=== PATIENT | female | born 1980 | race Caucasian/White ===

== ENCOUNTER 2021-09-11 11:22 | Outpatient (CLI) | payer OTHER, SELFPAY | END 2021-09-11 11:23 | disposition home or self-care (01) | LOC: FRMREF 11:23 | PROVIDERS: PCP Physician Assistant Medical; Visit Provider Physician Assistant Medical | DX: O20.9 Hemorrhage in early pregnancy, unspecified (principal) | CPT/HCPCS: 84702 ==

== ENCOUNTER 2022-10-07 10:52 | Outpatient (CLI) | payer OTHER, SELFPAY ==
--- OUTSIDE RECORDS SUMMARY | 2022-10-07 10:55 | XMS_ITS | Continuity of Care Document ---
Author Name Unknown Organization [facility] Address [address] [place] [address] Phone Care Team Providers Care Window Shade Ring Coverer Name Role Phone Cory Burch DO Unavailable Unavailable Allergies, Adverse Reactions, Alerts Substance Reaction Status Criticality penicillin G benzathine Active No I nformation amoxicillin Active No Information Medications Medication Instructions Dosage Effective Dates (start - stop) Status Comments elderberry fruit 460 mg-elderberry flower 115 mg capsule - Active Vitamin C 1,000 mg tablet take 1 by Oral route every day 1 - Active PROBIOTIC (unknown strength) take 1 by Oral route every day Not Available - Active Vitamin D3 125 mcg (5,000 unit) tablet take 1 by Oral route every day 1 - Active ZINC (unknown strength) daily Not Available - Active Procedures Procedure Date Office/Outpatient Visit, Est Office/Outpatient Visit, New Routine Venipuncture Specimen Handling Rbc Sed Rate, Nonautomated Assay Of Serum Albumin Assay Of Ck (Cpk) Assay Of Creatinine Assay Alkaline Phosphatase Transferase (Ast) (Sgot) Assay Of Blood/Uric Acid CReactive Protein Antinuclear Antibodies Lyme Disease Antibody Rheumatoid Factor, IGM Rheumatoid Factor, IGG, IGA Complete Cbc WAuto Diff Wbc Advance Directives Directive Yes / No Effective Date File Name No Information Encounters Encounter Description Practice Location Reason(s) For Visit Diagnoses Date Provider Providers Copied on Encounter Office/Outpa tient Visit, Est [facility] , [address], [place], [address], [place] tel:[phone] Telehealth Musculoskele lenin pain (chief complaint)Ab normal Lab Study (chief complaint)Ba ck pain (chief complaint) Fibromyalgia Abnormal immunologica l finding in serum, unspecifiedL ow back pain 1 Marcin Ray. [facility] [address], [place], [address], [place]. tel:[phone] Referring Provider: Cory Montilla, [facility] [address], [place], [address]. tel:[phone] Office/Outpa tient Visit, New [facility] , [address], [place], [address], [place] tel:[phone] [facility] , Joint Pain (chief complaint)Mu sculoskeleta l pain (chief complaint)Ab normal Lab Study (chief complaint) Pain in unspecified jointMyalgia , unspecified siteAbnormal immunologica l finding in serum, unspecifiedO ther fatigue 1 Marcin Ray. [facility] [address], [place], [address], [place]. tel:[phone] Referring Provider: Cory Montilla, [facility] [address], [place], [address]. tel:[phone] Family History Family Member Type Diagnosis Age At Onset Father Problem Cardiovascular disease Maternal uncle Problem malignant neoplasm of lung Mother Problem transverse myelitis Payers Payer name Insurance type Covered libertarian ID Authorricharda yo(s) [facility] [id number] Social History Type Description Quantity Date Captured Comments Alcohol Use Details Unknown Caffeine Use Details Unknown Tobacco Use Status Current non-smoker Smoking Status Never smoker Non-Smoking Tobacco Use Details : No Details Available : No Details Available Sex Female Chief Complaint And Reason For Visit From encounter dated '04/12/2020 13:37'. Musculoskeletal pain (chief complaint) Abnormal Lab Study (chief complaint) Back pain (chief complaint) Reason For Referral Reason For Referral No Information History Of Present Illness Encounter Date Complaint History Of Prese nt Illness Musculoskeletal pain Abnormal Lab Study Back pain Joint Pain Musculoskeletal pain Abnormal Lab Study Functional Status Date Functional Assessmen t No Information Instructions Date Instruction Additional Infor mation No Information Assessments Type Assessment Date assessment Fibromyalgia assessment Abnormal immunological finding i n serum, unspecified assessment Low back pain Patient Care Teams Name Effective Dates (start - stop) Status Members No Information
== END 2022-10-07 10:53 | disposition home or self-care (01) ==
PROVIDERS: PCP Physician Assistant Medical; Visit Provider Obstetrics & Gynecology
DX: O20.9 Hemorrhage in early pregnancy, unspecified (principal)
CPT/HCPCS: 84702; 85461; 86850

== ENCOUNTER 2022-10-09 07:17 | Outpatient (CLI) | payer OTHER, SELFPAY ==
--- NOTE | 2022-10-09 07:15 | CRLHL7_ITS ---
For Patients: As a result of the Century Cures Act, medical imaging exams and procedure reports are released immediately into your electronic medical record. You may view this report before your referring provider. If you have questions, please contact your health care provider. INDICATION: bleeding in early COMPARISON: None. TECHNIQUE: Real-time tovar-scale imaging of the pelvis was performed. FINDINGS: There is no intrauterine or ectopic . Corpus luteal cyst right ovary measuring 1.4 cm. The left ovary normal. No pelvic free fluid. No uterine fibroid. Endometrium measures 6.6 millimeters. IMPRESSION: No intrauterine or ectopic . Dictated by Vijay Martin MD @ 10/09/2022 8:12:49 AM (Electronically Signed)
== END 2022-10-09 07:18 | disposition home or self-care (01) ==
LOC: US 07:18
PROVIDERS: Visit Provider Obstetrics & Gynecology
DX: O20.9 Hemorrhage in early pregnancy, unspecified (principal); O03.9 Complete or unspecified spontaneous abortion without complication
CPT/HCPCS: 76817; 84702

== ENCOUNTER 2022-10-16 08:59 | Outpatient (CLI) | payer OTHER, SELFPAY | END 2022-10-16 09:00 | disposition home or self-care (01) | LOC: NFLDREF 10-17 12:32 | PROVIDERS: Visit Provider Registered Nurse | DX: O03.9 Complete or unspecified spontaneous abortion without complication (principal) | CPT/HCPCS: 84702 ==

== ENCOUNTER 2023-08-21 02:29 | Emergency (ER) | payer OTHER, SELFPAY ==
[2023-08-21] VITALS (9 sets, daily range): BP systolic 124–159; BP diastolic 71–90; PULSE 71–91; RESP 16; TEMP 37; O2SAT 95–100; BMI 36.1
--- NOTE | 2023-08-21 02:53 | CRLHL7_ITS ---
For Patients: As a result of the Century Cures Act, medical imaging exams and procedure reports are released immediately into your electronic medical record. You may view this report before your referring provider. If you have questions, please contact your health care provider. INDICATION: CHEST PAIN, RAPID BREATHING TECHNIQUE: Chest 2 views. COMPARISON: None. FINDINGS: Cardiovascular and mediastinum: Heart size and vasculature are normal in caliber and appearance. Lungs and pleural spaces: Lungs are clear. No sign of infiltrate. No sign of pleural effusion. No pneumothorax. Bones and soft tissues: No significant findings. IMPRESSION: No evidence of acute cardiopulmonary process. Dictated by Hayes Rivera MD @ 08/21/2023 5:09:47 AM (Electronically Signed)
--- OUTSIDE RECORDS SUMMARY | 2023-08-21 03:00 | XMS_ITS | Encounter Summary ---
Author Organization [facility] Address [address] [address] Care Team Providers Care Fisher Diving Name Role Phone Needs Pcp, Assignment Primary Care Provider [phone] Encounter Details Date Type Department Care Team (Latest Contact Info) Description 10/28/2000 [facility] Ector Figueroa MD [address] [place] [address] Social History Tobacco Use Types Packs/Day Years Used Date Smoking Tobacco: Never Assessed Sex and Gender Information Value Date Recorded Sex Assigned at Not on file Gender Identity Not on file Sexual Orientation Not on file documented as of this encounter Procedure Notes * Ector Figueroa - 10/28/2000 12:00 AM CDTDATE OF SURGERY: STAFF SURGEON: Ector Figueroa MD PREOPERATIVE DIAGNOSIS: Urinary frequency. POSTOPERATIVE DIAGNOSIS: Urinary frequency. NAME OF OPERATION: [place]-distention of the bladder. ANESTHESIA: General. DESCRIPTION OF PROCEDURE: After the patient was prepped and draped in the dorsal lithotomy position, using a Storz cystoscope, the urethra and bladder were inspected. There were no exophytic lesions, foreign bodies, or calculi. The bladder was distended at 50 cm of water pressure and diffuse glomerulations and Hunner ulcer formations were noted. IMPRESSION: This patient does have interstitial cystitis. The patient tolerated the procedure well and was taken to the recovery room in satisfactory condition. hai Dictated: 10/28/2000 12:50:38 Lesvia Figueroa MD Transcribed: 10/29/2000 05:13:00 Doc #: [id number] cc: [facility], Primary Provider DO NOT SIGN UNLESS PRESENT FOR PROCEDURE I attest that I was present for and participated in the joseph portions of this procedure(s) in compliance with the Health Care Financing Administration Teaching Physician Guidelines. Signed Date Regions Staff Physician 1 Page 1 Patient Name: NOREEN KEE Visit Date: 10/28/2000 OUTPATIENT OPERATIVE REPORT [facility] RECORD [address] [address] Page 1 Patient: [facility]ORE[facility]EE [id number] Date of : 1980 Visit Date: 10/28/2000 OUTPATIENT OPERATIVE REPORT documented in this encounter Plan of Treatment Not on file documented as of this encounter Visit Diagnoses Not on filedocumented in this encounter Care Teams Fisher Diving Relationship Specialty Start Date End Date Needs Pcp, [place] [address] PCP - General 01/04/22 documented as of this encounter
--- OUTSIDE RECORDS SUMMARY | 2023-08-21 03:00 | XMS_ITS | Clinical Summary ---
Author Organization [facility] Address [address] [place] [address] Care Team Providers Care Underground Roof Bolter Name Role Phone Alla Espinosa MD Primary Care Provider [phone] Allergies Active Allergy Reactions Criticality Noted Date Comments Amoxicillin 04/12/2013 Azithromycin Rash Low 12/10/2015 Rash on face, arms and legs. Penicillins Hives 11/18/2012 Medications Medication Sig Dispensed Refills Start Date End Date Status albuterol (PROAIR HFA/PROVENTIL HFA/VENTOLIN HFA) 108 (90 Base) MCG/ACT Inhaler Inhale 2 puffs into the lungs every 6 hours as needed for shortness of breath / dyspnea or wheezing 1 Inhaler 08/28/2017 Active ondansetron (ZOFRAN) 8 MG tabletIndications:Hemanth sea and vomiting, intractability of vomiting not specified, unspecified vomiting type Take 1 tablet (8 mg) by mouth every 8 hours as needed for nausea 15 tablet 3 09/12/2017 Active Additional Information Patient not taking.Reported on 11/28/2017 Active Problems Problem Noted Date Diagnosed Date PCOS (polycystic ovarian syndrome) 05/30/2015 Cervical high risk HPV (human papillomavirus) te st positive 05/25/2015 Overview: 05/25/15: Pap - NIL, + HR HPV type 16 & other HR HPV. Plan colp 06/01/15 Pt advised. 06/06/15 [place]: WNL. Plan: pap and HPV due in 1 year, by 06/05/16 06/25/16 NIL, +HPV 16 (Care Everywhere) 02/24/17 [place]- Inflammation and mild squamous atypia. Plan 1 yr pap repeat. (Care Everywhere) 07/16/17 ASCUS, Neg HPV. Plan colp. 09/05/17: [place] Bx ADALI I. Plan pap . 07/28/18 Patient is lost to pap tracking follow-up. CARDIOVASCULAR SCREENING; LDL GOAL LESS THAN 160 04/04/2015 Dysmenorrhea 04/04/2015 Hair loss 04/04/2015 Right-sided thoracic back pain 04/04/2015 Weight gain 04/04/2015 Acute intractable tension-type headache 04/04/19 16 Insomnia, unspecified insomnia 04/04/2015 Immunizations Name Administration Dates Next Due DT (PEDS <7y) 06/04/1985 Hepatitis A (ADULT 19+) 05/30/2010 Hepatitis B, Adult 12/04/2010,05/30/2010, 011 Historical DTP/aP 06/06/1982,01/04/1981,07/28/18 81 Influenza (IIV3) PF 12/04/2010 Influenza Vaccine >6 months,quad, PF 11/28/2017 MMR 04/27/1982 OPV, trivalent, live 06/04/1985,01/04/1981,07/28 Pneumo Conj 13-V (2010&after) 03/06/2016 Rhogam 01/02/2018 TDAP (Adacel,Boostrix) 12/04/2010 TDAP Vaccine (Adacel) 01/02/2018 Family History Medical History Relation Comments Depression Father GERD Father heartburn Heart Disease Father Mental Illness Father Breast Cancer Maternal Aunt Diabetes Maternal Grandfather Cancer Maternal Uncle Arthritis Mother Blood Disease Mother not sure what it is called Chronic Infections Mother bladder inf Neuromuscular Disease Mother transverse myelitis Depression Paternal Uncle Relation Status Comments Father Alive Maternal Aunt Maternal Grandfather Maternal Grandmother Maternal Uncle Mother Alive Paternal Grandfather Paternal Grandmother Alive Paternal Uncle Social History Tobacco Use Types Packs/Day Years Used Date Smoking Tobacco: Never Smokeless Tobacco: Never Tobacco Cessation:Counseling Given: No Alcohol Use Standard Drinks/Week Comments No 0 (1 standard drink = 0.6 oz pur e alcohol) PHQ-2 Answer Date Recorded PHQ-2 Score 0 03/17/2018 Adolescent Education Answer Date Record ed Getting School Help Needed Not on file 12/15 Sex and Gender Information Value Date Recorded Sex Assigned at Not on file Gender Identity Not on file Sexual Orientation Not on file Last Filed Vital Signs Vital Sign Reading Time Taken Comments Blood Pressure 122/72 01/02/2018 10:22 AM CDT Pulse 76 10/03/2017 1:42 PM CDT Temperature 37.2 ??C (99 ??F) 08/13/2017 3:25 PM CDT Respiratory Rate 16 03/06/2016 5:41 PM NITRATOR OPERATOR Oxygen Saturation 99% 08/13/2017 3:25 PM CDT Inhaled Oxygen Concentration - - Weight 94.8 kg (209 lb) 01/02/2018 10:22 AM CDT Height 167.6 cm (5' 6) 09/05/2017 10:20 AM CDT Body Mass Index 33.73 09/05/2017 10:20 AM CDT Plan of Treatment Not on file Care Teams Underground Roof Bolter Relationship Specialty Start Date End Date Alla Espinosa MD [address] [place] [address] PCP - General escalator constructor 11/28/17
--- OUTSIDE RECORDS SUMMARY | 2023-08-21 03:00 | XMS_ITS | Clinical Summary ---
Author Organization [facility] Address [address] [place] [address] Care Team Providers Care Regulatory Affairs Associate Name Role Phone Needs Pcp, Assignment Primary Care Provider [phone] Source Comments You are receiving this document as you are listed as the primary care provider,follow-up provider, or the patient has been referred to you for consultation.This is in compliance with the Medicare and[facility] EHR Incentive Program,which states Providers who transition their patient to another setting of careor provider of care or refers their patient to another provider of care shouldprovide summary care record for each transition of care or referral. [employer] [facility] [facility]formerly [employer] Allergies Active Allergy Reactions Criticality Noted Date Comments Amoxicillin Unknown 09/21/2013 Amoxicillin Rash 09/09/2018 Penicillins Rash 09/09/2018 Medications Medication Sig Dispensed Refills Start Date End Date Status ALBUterol sulfate hfa 108 (90 BASE) MCG/ACT inhaler 2 puffs every 4 hours while awake for the next three days and then as needed. Do not use more than 12 puffs in 24 hours. 18 g 0 12/09/2013 Active Vitamins/Minerals Take 1 Tab by mouth. Active sertraline (ZOLOFT) 50 MG tablet Take 1 Tablet by mouth daily. 90 Tablet 3 09/09/2018 Active cyclobenzaprine (FLEXERIL) 10 MG tablet Take 1 Tablet by mouth three times a day as needed for Muscle Spasms. 30 Tablet 09/09/2018 Active Misc. Devices (BREAST PUMP) 1 Each 09/09/2018 Active Lactobacillus 09/09/2018 Active Acetaminophen (TYLENOL ARTHRITIS PAIN OR) Take 1,300 mg by mouth daily. Active ibuprofen (MOTRIN) 600 MG tablet Take 600 mg by mouth as needed for Pain. Active Vit-Fe Fumarate-FA ( RX 1 OR) Active oxybutynin (DITROPAN) 5 MG tabletIndications:Tony jean-baptiste frequency Take 1 Tablet (5 mg) by mouth two times a day. 180 Tablet 3 01/18/2022 Active Active Problems Problem Noted Date Diagnosed Date Depression 10/27/2018 Cervical cancer screening 07/02/2016 Overview: From visit on 06/25/16: History of abnormal pap tests? Yes; Age: 35- positive HPV?? in 2016?? 2017 NILM; Positive for High Risk HPV type 16 36 y.o. Colpo: negative biopsies Plan: repeat pap in 1 year Immunizations Name Administration Dates Next Due DT Ped 06/04/1985 DTP 06/06/1982,01/04/1981,1980 MMR 04/27/1982 OPV, Trivalent (Orimune or tOPV) 06/04/1985,12/09,1980 Tdap 12/04/2010 Family History Medical History Relation Name Comments Depression Father Hyperlipidemia Father Hypertension Father Genetic Disorder Mother Osteoporosis Mother Diabetes, Type II Maternal Grandfather Relation Name Status Comments Father Alive Mother Alive Maternal Grandfather (Age 40's) complication w/ diabetes Maternal Grandmother (Age 64) Co mplication after surgery Paternal Grandfather (Age 84) Paternal Grandmother Alive Social History Tobacco Use Types Packs/Day Years Used Date Smoking Tobacco: Never Smokeless Tobacco: Never Alcohol Use Standard Drinks/Week Comments Never 0 (1 standard drink = 0.6 oz pur e alcohol) Sex and Gender Information Value Date Recorded Sex Assigned at Not on file Gender Identity Not on file Sexual Orientation Not on file Last Filed Vital Signs Vital Sign Reading Time Taken Comments Blood Pressure 121/74 10/27/2018 8:42 AM CDT Pulse 72 10/27/2018 8:42 AM CDT Temperature 36.7 ??C (98.1 ??F) 12/14/2013 5:28 PM CD T Respiratory Rate 15 06/25/2016 9:12 AM CDT Oxygen Saturation 100% 12/14/2013 5:28 PM CDT Inhaled Oxygen Concentration - - Weight 105.2 kg (232 lb) 10/27/2018 8:42 AM CDT Height 167.6 cm (5' 6) 10/27/2018 8:42 AM CDT Body Mass Index 37.45 10/27/2018 8:42 AM CDT Plan of Treatment Health Maintenance Due Date Last Done Comments Hep C Screening (Preventive Services) 1980 HIV Screening (Preventive Services) 1996 HepB (1) 05/28/1999 Cervical Cancer Screening 06/25/20172016, 05/25/2015 (Completed), 12/04/2010 Adult Preventive Visit 06/25/2018 06/25/2016 COVID-19 Vaccine ( season) 2022 Influenza (Season Ended) 2023 11/28/2017, 11/09 DTaP/Tdap/Td (7 - Tdap) 01/03/2028 01/03/20, 12/04/2010, 06/04/1985, Additional history exists Zoster/Shingles (1 of 2) 2030 IPV (Polio) Completed 06/04/1985, 12/09, 1980 HepA Aged Out 05/30/2010 No longer eligi ble based on patient's age to complete this topic Pneumococcal Aged Out 03/06/2016 No longer eligi ble based on patient's age to complete this topic HPV Vaccine Aged Out No longer eligi ble based on patient's age to complete this topic Hib Aged Out No longer eligi ble based on patient's age to complete this topic MCV4 Aged Out No longer eligi ble based on patient's age to complete this topic Procedures Procedure Name Priority Date/Time Associated Diagnosis Comments PAP TEST, DIAGNOSTIC Routine 06/25/2016 10:14 AM CDT Screening for cervical cancer from Last 3 Months or Most Recently Relevant to Health Maintenance Results * Pap Test, Diagnostic (06/25/2016 10:14 AM CDT) Cytology (NOTE) Barrel Inspector Tight Cytology Report Patient Name: NOREEN KEE Taken: 06/25/2016 Received: 06/26/2016 Reported: 07/04/2016 Physician(s): TIKI GRIGSBY ?Source of Specimen Pap Test, Diagnostic Cervical/Endocervi josefina: ?Specimen Adequacy ?Satisfactory for evaluation. ??Endocervical component absent. ? Final Cytologic Interpretation/Res ult NEGATIVE FOR INTRAEPITHELIAL LESION OR MALIGNANCY (NILM) ?? *Electronically Signed Out By KUMAR Meng (ASCP)* KUMAR Meng (ASCP) ? Pap Smear History Date of Last Menstrual Period: No LMP recorded ?? Microscopic Description Microscopic examination is performed. [facility] Department of Pathology [address] [place] [address] ??[id number] [facility] 06/25/2016 10:1 4 AM CDT 06/26/2016 5:33 PM CDT Tiik Grigsby PA-C LAB_1 [facility] [phone] from Last 3 Months or Most Recently Relevant to Health Maintenance Care Teams Regulatory Affairs Associate Relationship Specialty Start Date End Date Needs PcpSam [facility] [place], [place] [address] PCP - General 01/04/22
--- OUTSIDE RECORDS SUMMARY | 2023-08-21 03:01 | XMS_ITS | Encounter Summary ---
Author Organization [facility] Address [address] [place] [address] Care Team Providers Care Slunk Skinner Name Role Phone Leeanne Fleming APRN, CNP Primary Care Provid er Leeanne Fleming APRN, CNP Primary Care Provid er No Ref-Primary, Physician Primary Care Provider Alla Espinosa MD Primary Care Provider [phone] Leeanne Fleming APRN SENIOR GRANTS OFFICER Unavailable + [phone] Leeanne Fleming APRN SENIOR GRANTS OFFICER Unavailable + [phone] Encounter Details Date Type Department Care Team (Late st Contact Info) Description 02/21/2016 [facility] [address] [id number] Ashley Yao Social History Tobacco Use Types Packs/Day Years Used Date Smoking Tobacco: Never Smokeless Tobacco: Never Alcohol Use Standard Drinks/Week Comments Yes 0 (1 standard drink = 0.6 oz pur e alcohol) occ Sex and Gender Information Value Date Recorded Sex Assigned at Not on file Gender Identity Not on file Sexual Orientation Not on file documented as of this encounter Plan of Treatment Not on file documented as of this encounter Visit Diagnoses Not on filedocumented in this encounter Care Teams Slunk Skinner Relationship Specialty Start Date End Date Leeanne Fleming APRN CNP [address] [place] [address] PCP - General Nurse Practitioner 03/06/16 07/15/17 Leeanne Fleming APRN SENIOR GRANTS OFFICER [address] [place] [address] PCP - General Nurse Practitioner 07/16/17 07/24/17 No Ref-Primary, Physician PCP - General 07/25/17 11/27/17 Alla Espinosa MD [address] [facility] [place] [address] PCP - General textile designs sales representative 11/28/17 Leeanne Fleming APRN SENIOR GRANTS OFFICER [address] [place] [address] PCP - Assigned PCP 03/09/15 05/12/18 Leeanne Fleming APRN SENIOR GRANTS OFFICER [address] [place] [address] Assigned PCP 03/09/15 03/06/19 documented as of this encounter
--- OUTSIDE RECORDS SUMMARY | 2023-08-21 03:01 | XMS_ITS | Encounter Summary ---
Author Organization [facility] Address [address] [place] [address] Care Team Providers Care Lay Ups Assembler Name Role Phone Leeanne Fleming APRN, CNP Primary Care Provid er Leeanne Fleming APRN, CNP Primary Care Provid er No Ref-Primary, Physician Primary Care Provider Alla Espinosa MD Primary Care Provider [phone] Leeanne Fleming APRN VIOLIN RESTORER Unavailable +- [phone] Leeanne Fleming APRN VIOLIN RESTORER Unavailable +- [phone] Reason for Visit * Reason Onset Date Comments Patient Request 02/22/2016 Looking to see i f you can schedule her for an appt Encounter Details Date Type Department Care Team ([facility] Contact Info) Description 02/22/[address] [place] [address] Leeanne Olson MD [address] [place] [address] Patient Request (Looking to see if you can schedule her for an appt) Social History Tobacco Use Types Packs/Day Years Used Date Smoking Tobacco: Never Smokeless Tobacco: Never Alcohol Use Standard Drinks/Week Comments Yes 0 (1 standard drink = 0.6 oz pur e alcohol) occ Sex and Gender Information Value Date Recorded Sex Assigned at Not on file Gender Identity Not on file Sexual Orientation Not on file documented as of this encounter Miscellaneous Notes * Telephone Encounter - Celine Martin - 02/22/2016 12:27 PM CST Left message to call clinic. Celine Martin CTION PREVENTION COORDINATOR * Telephone Encounter - Leeanne Olson MD - 02/22/2016 12:20 PM INFECTION PREVENTION COORDINATOR I could see her on Mar 14 in a 15 min slot but I don't think that is much better than Mar 15. I don'thave any room to squeeze her in before that but she is welcome to see another bobbin handler if they have earlier availability. Thanks, Leeanne Olson MD CTION PREVENTION COORDINATOR * Telephone Encounter - Rina Wills - 02/22/2016 9:47 AM CST Pt called in stating she had been messaging with you via [employer] about her irregular period and wastold to call to set up an appointment. Your schedule doesn't open up until Mar 15 and she was wondering if you could find a time to squeeze her in any earlier. Pt can be reached @ [phone] [facility] CTION PREVENTION COORDINATOR documented in this encounter Plan of Treatment Not on file documented as of this encounter Visit Diagnoses Not on filedocumented in this encounter Care Teams Lay Ups Assembler Relationship Specialty Start Date End Date Leeanne Fleming APRN VIOLIN RESTORER [address] [place] [address] PCP - General Nurse Practitioner 03/06/16 07/15/17 Leeanne Fleming APRN VIOLIN RESTORER [address] [place] [address] PCP - General Nurse Practitioner 07/16/17 07/24/17 No Ref-Primary, Physician PCP - General 07/25/17 11/27/17 Alla Espinosa MD [address] [place] [address] PCP - General bucket wash operator 11/28/17 Leeanne Fleming APRN VIOLIN RESTORER [address] [place] [address] PCP - Assigned PCP 03/09/15 05/12/18 Leeanne Fleming APRN VIOLIN RESTORER [address] [place] [address] Assigned PCP 03/09/15 03/06/19 documented as of this encounter
--- OUTSIDE RECORDS SUMMARY | 2023-08-21 03:01 | XMS_ITS | Encounter Summary ---
Author Organization [facility] Address [address] [place] [address] Care Team Providers Care Manager Mortgage Name Role Phone No Ref-Primary, Physician Primary Care Provider Alla Espinosa MD Primary Care Provider [phone] Leeanne Fleming MODEL MAKER SCALE SENIOR STACK ENGINEER Unavailable +- [phone] Leeanne Fleming APRN SENIOR STACK ENGINEER Unavailable +- [phone] Reason for Referral * - Closed Specialty Diagnoses / Procedures Referred By Nima holguin Referred To Contact Diagnoses related condition, antepartum Alla Espinosa MD [address] [place] [address] Referral ID Status Reason Start Date Expiration Date Visits Re quested Visits Authorized [id number] Closed 10/03/2017 10/03/2018 1 1 Comments AMA Encounter Details Date Type Department Care Team (Late st Contact Info) Description 10/03/2017 [facility] [address] [phone] Alla Espinosa MD [address] [facility] [place] [address] related condition, antepartum (Primary Dx) Social History Tobacco Use Types Packs/Day Years Used Date Smoking Tobacco: Never Smokeless Tobacco: Never Alcohol Use Standard Drinks/Week Comments No 0 (1 standard drink = 0.6 oz pur e alcohol) Comments Yes Sex and Gender Information Value Date Recorded Sex Assigned at Not on file Gender Identity Not on file Sexual Orientation Not on file documented as of this encounter Plan of Treatment Scheduled Referrals Name Type Priority Associated Diagnoses Orde r Schedule MFM Genetic Counseling Referral Routine related condition, antepartum 1 Occurrences starting 10/03/2017 until 10/03/2018 documented as of this encounter Visit Diagnoses Diagnosis related condition, antepartum- Primary documented in this encounter Care Teams Manager Mortgage Relationship Specialty Start Date End Date No Ref-Primary, Physician PCP - General 07/25/17 11/27/17 Alla Espinosa MD [address] [place] [address] PCP - General educational guidance counselor 11/28/17 Leeanne Fleming APRN SENIOR STACK ENGINEER [address] [place] [address] PCP - Assigned PCP 03/09/15 05/12/18 Leeanne Fleming APRN SENIOR STACK ENGINEER [address] [place] [address] Assigned PCP 03/09/15 03/06/19 documented as of this encounter
--- OUTSIDE RECORDS SUMMARY | 2023-08-21 03:01 | XMS_ITS | Encounter Summary ---
Author Organization [facility] Address [address] [place] [address]. [place] [address] Care Team Providers Care Rn Licensed Practical Name Role Phone Leeanne Fleming APRN, CNP Primary Care Provid er Leeanne Fleming APRN, CNP Primary Care Provid er No Ref-Primary, Physician Primary Care Provider Alla Espinosa MD Primary Care Provider [phone] Leeanne Fleming APRN BATCH ROOM TECHNICIAN Unavailable + [phone] Leeanne Fleming APRN BATCH ROOM TECHNICIAN Unavailable [phone]- [phone] Encounter Details Date Type Department Care Team (Late st Contact Info) Description 06/13/2015 [facility] [place] Medical Advice [address] [place] [address] Leeanne Olson MD [address] [place] [address] [address] [place] [address] Social History Tobacco Use Types Packs/Day Years [...] on filedocumented in this encounter Care Teams Rn Licensed Practical Relationship Specialty Start Date End Date Leeanne Fleming APRN BATCH ROOM TECHNICIAN [address] [place] [address] PCP - General Nurse Practitioner 03/06/16 07/15/17 Leeanne Fleming APRN BATCH ROOM TECHNICIAN [address] [place] [address] PCP - General Nurse Practitioner 07/16/17 07/24/17 No Ref-Primary, Physician PCP - General 07/25/17 11/27/17 Alla Espinosa MD [address] [place] [address] PCP - General medical records director 11/28/17 Leeanne Fleming APRN BATCH ROOM TECHNICIAN [address] [place] [address] PCP - Assigned PCP 03/09/15 05/12/18 Leeanne Fleming APRN BATCH ROOM TECHNICIAN [address] [place] [address] Assigned PCP 03/09/15 03/06/19 documented as of this encounter
--- OUTSIDE RECORDS SUMMARY | 2023-08-21 03:01 | XMS_ITS | Encounter Summary ---
Author Organization [facility] Address [address] [place] [address] Care Team Providers Care Ham Boner Name Role Phone Leeanne Fleming APRN, CNP Primary Care Provid er Leeanne Fleming APRN, CNP Primary Care Provid er No Ref-Primary, Physician Primary Care Provider Alla Espinosa MD Primary Care Provider [phone] Leeanne Fleming APRN HOOP MACHINE OPERATOR Unavailable [phone] Leeanne Fleming APRN HOOP MACHINE OPERATOR Unavailable [phone] Encounter Details Date Type Department Care Team (Late st Contact Info) Description 06/28/2015 [facility] Advice [address] [phone] Leeanne Fleming APRN HOOP MACHINE OPERATOR [address] [place] [id number] Social History Tobacco Use Types Packs/Day Years [...] on filedocumented in this encounter Care Teams Ham Boner Relationship Specialty Start Date End Date Leeanne Fleming APRN HOOP MACHINE OPERATOR [address] [place] [address] PCP - General Nurse Practitioner 03/06/16 07/15/17 Leeanne Fleming APRN HOOP MACHINE OPERATOR [address] [place] [address] PCP - General Nurse Practitioner 07/16/17 07/24/17 No Ref-Primary, Physician PCP - General 07/25/17 11/27/17 Alla Espinosa MD [address] [place] [address] PCP - General airline station agent 11/28/17 Leeanne Fleming APRN HOOP MACHINE OPERATOR [address] [place] [address] PCP - Assigned PCP 03/09/15 05/12/18 Leeanne Fleming APRN HOOP MACHINE OPERATOR [address] [place] [address] Assigned PCP 03/09/15 03/06/19 documented as of this encounter
--- OUTSIDE RECORDS SUMMARY | 2023-08-21 03:01 | XMS_ITS | Encounter Summary ---
Author Organization [facility] Address [address] [place] [address]. [place] [address] Care Team Providers Care Carpenter Helper Name Role Phone Leeanne Fleming APRN, CNP Primary Care Provid er Leeanne Fleming APRN, CNP Primary Care Provid er No Ref-Primary, Physician Primary Care Provider Alla Espinosa MD Primary Care Provider [phone] Leeanne Fleming APRN MOLD FILLER Unavailable + [phone] Leeanne Fleming APRN MOLD FILLER Unavailable +- [phone] Encounter Details Date Type Department Care Team (Late st Contact Info) Description 11/03/2015 [facility] [place] [address] [place] [address] Leeanne Olson MD [address] [place] [address] [address] [place] [address] Social History Tobacco Use Types [...] on filedocumented in this encounter Care Teams Carpenter Helper Relationship Specialty Start Date End Date Leeanne Fleming APRN MOLD FILLER [address] [place] [address] PCP - General Nurse Practitioner 03/06/16 07/15/17 Leeanne Fleming APRN MOLD FILLER [address] [place] [address] PCP - General Nurse Practitioner 07/16/17 07/24/17 No Ref-Primary, Physician PCP - General 07/25/17 11/27/17 Alla Espinosa MD [address] [place] [address] PCP - General operational assistant 11/28/17 Leeanne Fleming APRN MOLD FILLER [address] [place] [address] PCP - Assigned PCP 03/09/15 05/12/18 Leeanne Fleming APRN MOLD FILLER [address] [place] [address] Assigned PCP 03/09/15 03/06/19 documented as of this encounter
--- OUTSIDE RECORDS SUMMARY | 2023-08-21 03:01 | XMS_ITS | Encounter Summary ---
Author Organization [facility] Address [address] [place] [address] Care Team Providers Care Helper Teacher Name Role Phone Alla Espinosa MD Primary Care Provider [phone] Leeanne Fleming HIM CLERK PERSONAL COUNSELOR Unavailable [phone]- [phone] Leeanne Fleming APRN PERSONAL COUNSELOR Unavailable + [phone] Encounter Details Date Type Department Care Team (Late st Contact Info) Description 12/23/2017 [facility] [place] [facility] [address] [address] Alla Espinosa MD [address] [place] [address] Social History Tobacco Use Types Packs/Day Years [...] on filedocumented in this encounter Care Teams Helper Teacher Relationship Specialty Start Date End Date Alla Espinosa MD [address] [place] [address] PCP - General dial equipment engineer 11/28/17 Leeanne Fleming APRN PERSONAL COUNSELOR [address] [place] [address] PCP - Assigned PCP 03/09/15 05/12/18 Leeanne Fleming APRN PERSONAL COUNSELOR [address] [place] [address] Assigned PCP 03/09/15 03/06/19 documented as of this encounter
--- OUTSIDE RECORDS SUMMARY | 2023-08-21 03:01 | XMS_ITS | Encounter Summary ---
Author Organization [facility] Address [address] [place] [address]. [place] [address] Care Team Providers Care Armhole Presser Name Role Phone No Ref-Primary, Physician Primary Care Provider Alla Espinosa MD Primary Care Provider [phone] Leeanne Fleming BLEND PLANT OPERATOR SOURCING ENGINEER Unavailable [phone] Leeanne Fleming APRN SOURCING ENGINEER Unavailable [phone] Reason for Visit * Reason Onset Date Comments Pelvic Pain 08/11/2017 Encounter Details Date Type Department Care Team (Late st Contact Info) Description 08/11/2017 [facility]ice [address] [phone] Alla Espinosa MD [facility] [place] [address] Pelvic Pain Social History Tobacco Use Types Packs/Day Years [...] encounter Miscellaneous Notes * Telephone Encounter - Alla Espinosa MD - 08/19/2017 12:14 PM CDT I think her appointment tomorrow is fine as long as she isn't having intolerable pain or bleeding. Thanks. Alla Espinosa MD * Telephone Encounter - Maya Markham RN - 08/19/2017 11:[address] Espinosa, please review the my chart messages and advise if you would like to see pt today. She does have an appt tomorrow with you. Cayetano Markham RN * Telephone Encounter - Abigail Vera RN - 08/13/2017 11:55 AM CDT Left message on answering machine for patient to check my chart message and to call back. Abigail Vera RN * Telephone Encounter - Alla Espinosa MD - 08/12/2017 3:00 PM CDT 1. She can come in for UA, UC today or tomorrow and to get a bladder diary to fill out prior to herappointment. Then ok to move her appointment up if there is a 15 min spot sooner. 2. Her US was consistent with a possible ruptured ovarian cyst, which can cause symptoms like thoseshe has been having. However, this should get better on its own over time, but can take several weeks. 3. If severe pain unrelenting despite use of over the counter meds, needs to be seen in the ED. Alla Espinosa MD * Telephone Encounter - Ashley Morris RN - 08/11/2017 5:04 PM CDT Please see mychart message and advise. Ashley Morris RN documented in this encounter Plan of Treatment Not on file documented as of this encounter Visit Diagnoses Not on filedocumented in this encounter Care Teams Armhole Presser Relationship Specialty Start Date End Date No Ref-Primary, Physician PCP - General 07/25/17 11/27/17 Alla Espinosa MD [address] [place] [address] PCP - General element burner 11/28/17 Leeanne Fleming APRN SOURCING ENGINEER [address] [place] [address] PCP - Assigned PCP 03/09/15 05/12/18 Leeanne Fleming APRN SOURCING ENGINEER [address] [place] [address] Assigned PCP 03/09/15 03/06/19 documented as of this encounter
--- OUTSIDE RECORDS SUMMARY | 2023-08-21 03:01 | XMS_ITS | Encounter Summary ---
Author Organization [facility] Address [address] [place] [address] Care Team Providers Care Welder/Installer Name Role Phone Alla Espinosa MD Primary Care Provider [phone] Leeanne Fleming APRN INDUCTION COORDINATION ENGINEER Unavailable [phone] Leeanne Fleming APRN INDUCTION COORDINATION ENGINEER Unavailable [phone]- [phone] Reason for Visit * Reason Onset Date Comments Care 01/17/2018 med question Encounter Details Date Type Department Care Team (Late st Contact Info) Description 01/17/2018 [facility] Advice [address] [address] Alla Espinosa MD [address] [place] [address] Care (med question) Social History Tobacco Use Types Packs/Day Years [...] on filedocumented in this encounter Care Teams Welder/Installer Relationship Specialty Start Date End Date Alla Espinosa MD [address] [place] [address] PCP - General circulation supervisor 11/28/17 Leeanne Fleming APRN INDUCTION COORDINATION ENGINEER [address] [place] [address] PCP - Assigned PCP 03/09/15 05/12/18 Leeanne Fleming APRN INDUCTION COORDINATION ENGINEER [address] [place] [address] Assigned PCP 03/09/15 03/06/19 documented as of this encounter
--- OUTSIDE RECORDS SUMMARY | 2023-08-21 03:01 | XMS_ITS | Encounter Summary ---
Author Organization [facility] Address [address] [place] [address] Care Team Providers Care Relations Mgr Name Role Phone Leeanne Fleming APRN, CNP Primary Care Provid er Leeanne Fleming APRN, CNP Primary Care Provid er No Ref-Primary, Physician Primary Care Provider Alla Espinosa MD Primary Care Provider [phone] Leeanne Fleming APRN BILLBOARD ERECTOR HELPER Unavailable [phone] Leeanne Fleming APRN BILLBOARD ERECTOR HELPER Unavailable [phone] Encounter Details Date Type Department Care Team (Late st Contact Info) Description 08/10/2015 [facility] [place] Medical Advice [address] [phone] Leeanne Fleming APRN BILLBOARD ERECTOR HELPER [address] [place] [id number] Social History Tobacco Use Types Packs/Day Years [...] encounter Miscellaneous Notes * Telephone Encounter - Ashley Almanzar MD - 08/11/2015 7:57 AM CDT Yes, sounds like PCOS. Should probably come in for appt to discuss diagnosis and next possible options like metformin, ocp, etc (sounds like she will need appt per Leeanne's note) Thanks Ashley Almanzar MD documented in this encounter Plan of Treatment Not on file documented as of this encounter Visit Diagnoses Not on filedocumented in this encounter Care Teams Relations Mgr Relationship Specialty Start Date End Date Leeanne Fleming APRN BILLBOARD ERECTOR HELPER [address] [place] [address] PCP - General Nurse Practitioner 03/06/16 07/15/17 Leeanne Fleming APRN BILLBOARD ERECTOR HELPER [address] [place] [address] PCP - General Nurse Practitioner 07/16/17 07/24/17 No Ref-Primary, Physician PCP - General 07/25/17 11/27/17 Alla Espinosa MD [address] [place] [address] PCP - General horse rider 11/28/17 Leeanne Fleming APRN BILLBOARD ERECTOR HELPER [address] [place] [address] PCP - Assigned PCP 03/09/15 05/12/18 Leeanne Fleming APRN BILLBOARD ERECTOR HELPER [address] [place] [address] Assigned PCP 03/09/15 03/06/19 documented as of this encounter
[2023-08-21] MEDS: KETOROLAC 15 MG/ML inj IVP (03:21)
[2023-08-21] MEDS: LORazepam 2 MG/ML inj 1 MG IVP (03:21)
[2023-08-21 03:22] LABS: Basophils Percent Auto 0.2 % (0.0-3.0); Eosinophils Percent Auto 2.8 % (0.0-7.0); Hematocrit 41.7 % (33.0-51.0); Immature Granulocytes Pct Auto 0.1 %; Lymphocytes Percent Auto 25.5 % (20-44); Mean Corpuscular HGB Conc 34 gm/dL (32-36); Mean Corpuscular Hemoglobin 29 pg (26-34); Mean Corpuscular Volume 85 fL (80-100); Monocytes Percent Auto 8.5 % (0.0-11.0); Neutrophils Percent Auto 62.9 % (42.0-72.0); Platelet Count* 329 K/uL (140-440); RDW Coefficient of Variation % 13.1 % (11.5-15.5); White Blood Count* 13.25 K/uL (4.50-11.00)
[2023-08-21] MEDS: 0.9 % SODIUM CHLORIDE 1000 ml 1,000 ML IV (03:22)
[2023-08-21 03:23] LABS: Slide Review Reflex No
--- NOTE | 2023-08-21 03:24 | ED.GENADULT ---
HPI - General Adult General Date Seen: 08/21/23 Chief complaint: Chest Pain Stated complaint: chest pain, rapid breathing Time Seen by Provider: 08/21/23 02:30 Source: patient, RN notes reviewed and old records reviewed Mode of arrival: ambulatory Limitations: no limitations History of Present Illness HPI narrative: Patient is a 43-year-old woman who comes in with right-sided upper chest pain. She says this started a few hours ago when she was driving. It hurts to take a breath, does not otherwise feel short of breath. No fevers or cough. She tried some Tylenol which did not help. Pain radiates into the shoulder and has been associated with some nausea but no vomiting. No change with position. Denies abdominal pain. Denies history of similar pain. No lower extremity swelling or pain, no history of PE DVT. She seems quite anxious, she says she does have a history of anxiety but has never had symptoms like this. Medical history reviewed. Does not smoke or drink. Related Data Home Medications ?Medication ?Instructions ?Recorded ?Confirmed acetaminophen 500 mg tablet 1,000 mg PO Q6H PRN 10/09/22 07/06/23 (Tylenol Extra Strength) docosahexaenoic acid 200 mg mg PO 10/09/22 07/06/23 capsule ( DHA) albuterol sulfate 90 mcg/actuation 2 puff inhalation Q6H PRN 01/10/23 07/06/23 aerosol inhaler Previous Rx's ?Medication ?Instructions ?Recorded budesonide-formoterol HFA 160 2 inh inhalation BID #1 packet 01/10/23 mcg-4.5 mcg/actuation aerosol inhaler azithromycin 250 mg tablet See Rx Instructions PO .COMPLEX #6 03/26/23 tabs Allergies Allergy/AdvReac Type Severity Reaction Status Date / Time amoxicillin AdvReac Intermediate Rash Verified 07/06/23 10:15 Penicillin Allergy Intermediate Rash Uncoded 07/06/23 10:15 Review of Systems Status of ROS: Reports: 10 or more systems reviewed and unremarkable except as noted in History and below PFSH PFS Medical History Urticaria ?L50.9 - Urticaria, unspecified (ICD-10) Surgical History H/O breast augmentation ?Z98.82 - Breast implant status (ICD-10) Family History Father Coronary artery disease Mother Rheumatoid arthritis Social History Narrative: Has 1 child Non-smoker Non-prescribed substance use: denies use Exam Narrative: Exam Narrative: Vital signs as noted above. In general, an alert, nontoxic woman. She has her hand over her right upper chest near her clavicle. Head: Normocephalic, atraumatic. Eyes: Pupils are equal reactive. Extraocular movements are full. Conjunctivae are normal. ENT: Mucous membranes are moist. Throat is normal. Neck: Supple without lymphadenopathy. Heart: Regular rate and rhythm. No murmur or rub. Lungs: Clear bilaterally. No increased work of breathing, crackles or wheezes. Abdomen: Soft and nontender. No organomegaly. Extremities: Well perfused. No edema. No calf tenderness. Pulses intact. Neurologic: Patient is alert and oriented to person and place. Speech is fluent. Face is symmetric. Moves all extremities equally. Affect: Anxious. Skin: Warm and dry. Well perfused. Const: Vital Signs, click to edit/add: Vital Signs - 24 hr 08/21/23 02:35 08/21/23 02:40 08/21/23 02:45 Temperature 98.6 F Pulse Rate 88 83 Pulse Rate [Pulse Oximeter] 91 Respiratory Rate 16 Blood Pressure Blood Pressure [Ri ght Upper Arm] 159/90 H Pulse Oximetry 100 99 99 Oxygen Delivery Me thod Room Air 08/21/23 02:53 08/21/23 03:00 08/21/23 03:15 Temperature Pulse Rate 81 75 Pulse Rate [Pulse Oximeter] Respiratory Rate Blood Pressure Blood Pressure [Ri ght Upper Arm] Pulse Oximetry 100 99 99 Oxygen Delivery Me thod 08/21/23 03:30 08/21/23 03:45 08/21/23 04:00 Temperature Pulse Rate 71 73 72 Pulse Rate [Pulse Oximeter] Respiratory Rate 16 Blood Pressure 124/71 Blood Pressure [Ri ght Upper Arm] Pulse Oximetry 95 95 96 Oxygen Delivery Me thod Documenting provider has reviewed patient's vital signs: yes Course Course ED Course: Patient is examined vital signs are reassuring. Diagnostic considerations include muscular pain, pneumothorax, pulmonary embolism, pneumonia, acute coronary syndrome, biliary colic among others. EKG done on arrival shows a sinus rhythm, ventricular rate of 87. No acute ST segment changes, unremarkable T-waves. No EKG suggestion of pericarditis. Point of care troponin 0.02. Low risk, perc negative. Workup here is fairly unrevealing, white blood cell count is mildly elevated at 13, hemoglobin normal, diff is unremarkable. D-dimer normal at 0.26, no further evaluation needed for pulmonary embolism. Metabolic panel is normal, LFTs are normal, CRP is less than 0.5. BNP is 37. Initial point of care troponin was 0.02 a 2 hour troponin was 0. She had some improvement with Toradol and Ativan. She requests something for anxiety for home use. I told her that I can give her a few Ativan for short-term use but that she would need to see her primary doctor to discuss longer-term management of anxiety. She says she really does not want to be on a medicine every day, but I have discussed with her that if she is needing Ativan for management of her symptoms she would be best served by discussing other management strategies with her primary doctor. With regard to her chest pain, no evidence of dangerous cause at this time. Reviewed that symptoms may be chest wall, would recommend a trial of nonsteroidals, primary care follow-up next week for recheck. Vital Signs Vital signs: Initial Vital Signs Temperature 98.6 F 08/21/23 02:35 Temperature Source Temporal Artery Scan 08/21/23 02:35 Pulse Rate 91 08/21/23 02:35 Respiratory Rate 16 08/21/23 02:35 Blood Pressure 159/90 H 08/21/23 02:35 Blood Pressure Mean 113 H 08/21/23 02:35 Blood Pressure Position Supine 08/21/23 02:35 Pulse Oximetry 100 08/21/23 02:35 Oxygen Delivery Method Room Air 08/21/23 02:35 Vital Signs Temperature 98.6 F 08/21/23 02:35 Pulse Rate 91 08/21/23 02:35 Respiratory Rate 16 08/21/23 02:35 Blood Pressure 159/90 H 08/21/23 02:35 Pulse Oximetry 100 08/21/23 02:35 Oxygen Delivery Method Room Air 08/21/23 02:35 Temperature 98.6 F 08/21/23 02:35 Pulse Rate 72 08/21/23 04:00 Respiratory Rate 16 08/21/23 04:00 Blood Pressure 124/71 08/21/23 04:00 Pulse Oximetry 96 08/21/23 04:00 Oxygen Delivery Method Room Air 08/21/23 02:35 Medications Administered Medications: Generic Name Dose Route Start Last Admin Trade Name Freq PRN Reason Stop Dose Admin Sodium Chloride 1,000 mls @ 1,000 mls/hr 08/21/23 03:00 08/21/23 04:11 0.9 % Sodium Chloride 1000 Ml IV 08/21/23 03:59 Infused .Q1H DAVY Infusion Ketorolac Tromethamine 15 mg 08/21/23 02:56 08/21/23 03:21 Ketorolac 15 Mg/Ml Inj IVP 08/21/23 02:57 15 mg ONCE ONE Administration Lorazepam 1 mg 08/21/23 02:56 08/21/23 03:21 Lorazepam 2 Mg/Ml Inj IVP 08/21/23 02:57 1 mg ONCE ONE Administration Medical Decision Making Lab Data Labs: Lab Results 08/21/23 08/21/23 08/21/23 Range/Units 02:57 03:14 04:52 WBC 13.25 H (4.50-11.00) K/uL RBC 4.90 (4.00-5.20) m/uL Hgb 14.0 (12.0-16.0) gm/dL Hct 41.7 (33.0-51.0) % MCV 85 (80-100) fL MCH 29 (26-34) pg MCHC 34 (32-36) gm/dL RDW Coeff of Myrna 13.1 (11.5-15.5) % Plt Count 329 (140-440) K/uL Neut % (Auto) 62.9 (42.0-72.0) % Lymph % (Auto) 25.5 (20-44) % [place] % (Auto) 8.5 (0.0-11.0) % Eos % (Auto) 2.8 (0.0-7.0) % Baso % (Auto) 0.2 (0.0-3.0) % Neut # (Auto) 8.30 H (1.7-7.0) K/uL Lymph # (Auto) 3.40 H (0.90-2.90) K/uL [place] # (Auto) 1.10 H (0.00-0.90) K/UL Eos # (Auto) 0.40 (0.00-0.50) K/uL Baso # (Auto) 0.00 (0.00-0.30) K/uL Abs Immat Gran (auto) 0.00 (0.00-0.30) K/uL Imm/Tot Granulo (auto) 0.1 % D-Dimer Quant (PE/DVT) 0.26 (0.00-0.50) ug/ml Sodium 136 (135-149) mmol/L Potassium 3.8 (3.6-5.1) mmol/L Chloride 107 (96-114) mmol/L Carbon Dioxide 24 (20-32) mmol/L Anion Gap 5 L (7-15) mEq/L BUN 15 (5-24) mg/dL Creatinine 0.6 (0.5-1.5) mg/dL Estimated Creat Clear 108.79 Estimated GFR 114 ml/min Glucose 111 (60-115) mg/dL Calcium 9.3 (8.4-10.6) mg/dL Total Bilirubin 0.6 (0.1-1.5) mg/dL Direct Bilirubin 0.3 (0.0-0.5) mg/dL AST 21 (12-35) U/L ALT 31 (4-35) U/L Alkaline Phosphatase 56 (40-150) U/L C-Reactive Protein < 0.5 L (0.5-1.0) mg/dL NT-Pro-B Natriuret Pep 37 pg/mL Total Protein 7.1 (6.0-8.3) g/dL Albumin 4.5 (3.3-5.0) g/dL POC Troponin I 0.02 0.00 L (0.01-0.04) ng/ml Discharge Plan Discharge Clinical Impression: Atypical chest pain, Anxiety Patient Disposition: Home, Self-Care Condition: Improved Instructions: Chest Wall Pain (ED) Additional Instructions: Ibuprofen 400 mg 3 times daily, +/-1000 mg of Tylenol. Ice may be helpful as well. You can use Ativan as needed for anxiety symptoms in the short term, this is not a long-term solution for anxiety. Please follow-up with your primary doctor in the next week for recheck, and to discuss long-term management for anxiety as we will not be able to provide continued medications out of the emergency department. Return any time for severe uncontrolled pain, new symptoms such as fever, cough, vomiting. Prescriptions: No Action DHA 200 mg capsule PO acetaminophen [Tylenol Extra Strength] 500 mg tablet 1,000 mg PO Q6H PRN albuterol sulfate 90 mcg/actuation HFA aerosol inhaler 2 puff inhalation Q6H PRN budesonide-formoterol 160-4.5 mcg/actuation HFA aerosol inhaler 2 inh inhalation BID Qty: 1 0RF azithromycin 250 mg tablet See Rx Instructions PO .COMPLEX Qty: 6 0RF Rx Instructions: For 250 mg dose pack: take 500 mg today (day 1), then 250 mg for 4 days (days 2-5) PO Follow Up/Referrals: Fawad Escalante PA-C [Primary Care Provider] - Stand Alone Forms: [employer] Info Instructions
[2023-08-21 03:32] LABS: Troponin, Point-of-Care* 0.02 ng/ml (0.01-0.04)
[2023-08-21 03:35] LABS: Chloride* 107 mmol/L (96-114); Potassium* 3.8 mmol/L (3.6-5.1); Sodium* 136 mmol/L (135-149)
[2023-08-21 03:36] LABS: Albumin* 4.5 g/dL (3.3-5.0)
[2023-08-21 03:37] LABS: Creatinine* 0.6 mg/dL (0.5-1.5); Est. Creatinine Clearance* 108.79; Estimated Glomerular Filt Rate 114 ml/min
[2023-08-21 03:38] LABS: Anion Gap 5 mEq/L (7-15); Blood Urea Nitrogen* 15 mg/dL (5-24); Calcium* 9.3 mg/dL (8.4-10.6); Carbon Dioxide* 24 mmol/L (20-32); Glucose* 111 mg/dL (60-115)
[2023-08-21 03:39] LABS: Alanine Aminotransferase* 31 U/L (4-35); Alkaline Phosphatase* 56 U/L (40-150); Aspartate Amino Transferase* 21 U/L (12-35); Bilirubin Direct* 0.3 mg/dL (0.0-0.5); Bilirubin Total* 0.6 mg/dL (0.1-1.5); Total Protein* 7.1 g/dL (6.0-8.3)
[2023-08-21 03:41] LABS: C Reactive Protein* < 0.5 mg/dL (0.5-1.0)
[2023-08-21 03:42] LABS: D Dimer Quantitative* 0.26 ug/ml (0.00-0.50)
[2023-08-21 03:48] LABS: NT Pro B Type NatriureticPept* 37 pg/mL
== END 2023-08-21 05:33 | disposition home or self-care (01) ==
PROVIDERS: Emergency Provider Emergency Medicine; PCP Physician Assistant Medical
DX: R07.9 Chest pain, unspecified (principal); F41.9 Anxiety disorder, unspecified
CPT/HCPCS: 36415; 71046; 80048; 80076; 83880; 84484; 85025; 85379; 86140; 93005; 94761; 96374; 96375; 99284; J1885; J2060; J7030

== ENCOUNTER 2023-09-08 10:03 | Outpatient (CLI) | payer OTHER, SELFPAY ==
--- NOTE | 2023-09-08 10:00 | CRLHL7_ITS ---
For Patients: As a result of the Century Cures Act, medical imaging exams and procedure reports are released immediately into your electronic medical record. You may view this report before your referring provider. If you have questions, please contact your health care provider. Indication: PLEURODYNIA. LUQ PAIN. POSSIBLE HERNIA. PT DID VALSALVA DURING EXAM Technique: CT Abdomen/Pelvis WITHOUT Please note that all CT scans at this facility use dose modulation, iterative reconstruction, and/or weight-based dosing when appropriate to reduce radiation dose to as low as reasonably achievable. Comparison: ABDOMINAL ULTRASOUND 07/25/2021 Findings: Visualized breast implants are intact. Lung bases are clear. Noncontrast enhanced liver is within normal limits. The gallbladder is incompletely distended. No biliary obstruction. Normal spleen. Pancreas unremarkable. Normal adrenal glands. Kidneys normal. No renal stone. No hiatal hernia. No bowel obstruction, free air, free fluid or adenopathy. Bladder incompletely distended. Normal appendix. Slight outpouching of the left inguinal fat noted measuring 2.0 cm. No uterine fibroid. Small hemorrhagic cyst left ovary. Mild posterior ridging at L5-S1. No fracture. Minimal degenerative spurring at both hips. Impression: Small left inguinal hernia containing fat appears to be present measuring 2.0 cm. No inflammatory change or fluid collection. No bowel involvement. Small hemorrhagic cyst left ovary measures 1.3 cm. The remainder of the examination is unremarkable. Please note that all CT scans at this facility use dose modulation, iterative reconstruction, and/or weight-based dosing when appropriate to reduce radiation dose to as low as reasonably achievable. Dictated by Vijay Martin MD @ 09/08/2023 3:52:33 PM (Electronically Signed)
--- OUTSIDE RECORDS SUMMARY | 2023-09-08 10:49 | XMS_ITS | Clinical Summary ---
Author Organization [facility] Address [address] [place] [address] Care Team Providers Care Straw Baler Name Role Phone Needs Pcp, Assignment Primary Care Provider [phone] Source Comments You are receiving this document as you are listed as the primary care provider,follow-up provider, or the patient has been referred to you for consultation.This is in compliance with the Medicare andK[facility] EHR Incentive Program,which states Providers who transition their patient to another setting of careor provider of care or refers their patient to another provider of care shouldprovide summary care record for each transition of care or referral. [facility] Services[facility] Allergies Active Allergy Reactions Criticality Noted Date [...] Comments Hep C Screening (Preventive Services) 1980 Mammogram 1980 HIV Screening (Preventive Services) 1996 HepB [...] Diagnostic (06/25/2016 10:14 AM CDT) Cytology (NOTE) Stock Grader Cytology Report Patient Name: NOREEN KEE Taken: [...] ?? Microscopic Description Microscopic examination is performed. [facility] Department of Pathology [address] [place] [address] ??[id number] [facility] 06/25/2016 10:1 4 AM CDT 06/26/2016 5:33 PM CDT Tiki Grigsby PA-C LAB_1 [facility] [phone] from Last 3 Months or Most Recently Relevant to Health Maintenance Care Teams Straw Baler Relationship Specialty Start Date End [place] [address] PCP - General 01/04/22
--- OUTSIDE RECORDS SUMMARY | 2023-09-08 10:49 | XMS_ITS | Encounter Summary ---
Author Organization [facility] Address [address] [place] [address] Care Team Providers Care Supervisor Engines Road Name Role Phone Leeanne Fleming APRN, CNP Primary Care Provid er Leeanne Fleming APRN, CNP Primary Care Provid er No Ref-Primary, Physician Primary Care Provider Alla Espinosa MD Primary Care Provider [phone] Leeanne Fleming APRN BACK ROLLER Unavailable [phone] Leeanne Fleming APRN BACK ROLLER Unavailable [phone] Encounter Details Date Type Department Care Team (Late st Contact Info) Description 08/10/2015 [facility] [place] [address] [phone] Leeanne Fleming APRN BACK ROLLER [address] [place] [address] [id number] Social History Tobacco Use Types Packs/Day Years [...] on filedocumented in this encounter Care Teams Supervisor Engines Road Relationship Specialty Start Date End Date Leeanne Fleming APRN BACK ROLLER [address] [place] [address] PCP - General Nurse Practitioner 03/06/16 07/15/17 Leeanne Fleming APRN BACK ROLLER [address] [place] [address] PCP - General Nurse Practitioner 07/16/17 07/24/17 No Ref-Primary, Physician PCP - General 07/25/17 11/27/17 Alla Espinosa MD [address] [place] [address] PCP - General test desk supervisor 11/28/17 Leeanne Fleming APRN BACK ROLLER [address] [place] [address] PCP - Assigned PCP 03/09/15 05/12/18 Leeanne Fleming APRN BACK ROLLER [address] [place] [address] Assigned PCP 03/09/15 03/06/19 documented as of this encounter
--- OUTSIDE RECORDS SUMMARY | 2023-09-08 10:49 | XMS_ITS | Continuity of Care Document ---
Author Organization [facility] Address [address] [place] [address] Phone Care Team Providers Care Boiler Plant Operator Name Role Phone Cory Burch DO Unavailable [...] [facility] , [address], [place], [address], [place] tel:[phone] Telehealth Musculoskele lenin pain (chief complaint)Ab normal Lab Study (chief complaint)Ba ck pain (chief complaint) Fibromyalgia Abnormal immunologica l finding in serum, unspecifiedL ow back pain 1 Marcin Ray. [facility] [address], [place], [address], [place]. tel:[phone] Referring Provider: Cory Montilla, [facility] [address], [place], [address]. tel:[phone] Office/Outpa tient Visit, New [facility] , [address], [place], [address], [place] tel:[phone] [facility] , Joint Pain (chief complaint)Mu sculoskeleta l pain (chief complaint)Ab normal Lab Study (chief complaint) Pain in unspecified jointMyalgia , unspecified siteAbnormal immunologica l finding in serum, unspecifiedO ther fatigue 1 Marcin Ray. [facility] [address], [place], [address], [place]. tel:[phone] Referring Provider: Cory Montilla, [facility] [address], [place], [address]. tel:[phone] Family History Family Member Type Diagnosis Age At Onset Father Problem Cardiovascular disease Maternal uncle Problem malignant neoplasm of lung Mother Problem transverse myelitis Payers Payer name Insurance type Covered republican ID Authorricharda yo(s) SiteExcell Tower Partnerschristus st. vincent physicians medical centerBonaire Dreams [id number] Social History Type Description Quantity Date Captured [...]
--- OUTSIDE RECORDS SUMMARY | 2023-09-08 10:49 | XMS_ITS | Encounter Summary ---
Author Organization [facility] Address [address] [place] [address] Care Team Providers Care Detonator Assembler Name Role Phone Leeanne Fleming APRN, CNP Primary Care Provid er Leeanne Fleming APRN, CNP Primary Care Provid er No Ref-Primary, Physician Primary Care Provider Alla Espinosa MD Primary Care Provider [phone] Leeanne Fleming APRN HAND KISS SETTER Unavailable + [phone] Leeanne Fleming APRN HAND KISS SETTER Unavailable + [phone] Encounter Details Date Type Department Care Team (Late st Contact Info) Description 02/21/2016 [facility] [address] [phone] Ashley Yao Social History Tobacco Use Types [...] on filedocumented in this encounter Care Teams Detonator Assembler Relationship Specialty Start Date End Date Leeanne Fleming APRN CNP [address] [place] [address] PCP - General Nurse Practitioner 03/06/16 07/15/17 Leeanne Fleming APRN HAND KISS SETTER [address] [place] [address] PCP - General Nurse Practitioner 07/16/17 07/24/17 No Ref-Primary, Physician PCP - General 07/25/17 11/27/17 Alla Espinosa MD [address] [facility] [place] [address] PCP - General brokerage coordinator 11/28/17 Leeanne Fleming APRN HAND KISS SETTER [address] [place] [address] PCP - Assigned PCP 03/09/15 05/12/18 Leeanne Fleming APRN HAND KISS SETTER [address] [place] [address] Assigned PCP 03/09/15 03/06/19 documented as of this encounter
--- OUTSIDE RECORDS SUMMARY | 2023-09-08 10:49 | XMS_ITS | Referral Summary ---
Author Organization [facility] Address [address] [place] [address] Care Team Providers Care Trolley Collector Name Role Phone Alla Espinosa MD Primary Care Provider [phone] Allergies Active Allergy Reactions Criticality Noted Date [...] HPV. Plan colp 06/01/15 Pt advised. 06/06/15 [place]: WNL. Plan: pap and HPV due in 1 year, by 06/05/16 06/25/16 NIL, +HPV 16 (Care Everywhere) 02/24/17 [place]- Inflammation and mild squamous atypia. Plan 1 yr pap repeat. (Care Everywhere) 07/16/17 ASC[facility], Neg HPV. Plan colp. 09/05/17: [place] Bx ADALI I. Plan pap . 07/28/18 [...] TDAP (Adacel,Boostrix) 12/04/2010 TDAP Vaccine (Adacel) 01/02/2018 Social History Tobacco Use Types Packs/Day Years [...] CDT Respiratory Rate 16 03/06/2016 5:41 PM PARTS SALES COUNTERPERSON Oxygen Saturation 99% 08/13/2017 3:25 PM CDT Inhaled Oxygen Concentration - - Weight 94.8 kg (209 lb) 01/02/2018 10:22 AM CDT Height 167.6 cm (5' 6) 09/05/2017 10:20 AM CDT Body Mass Index 33.73 09/05/2017 10:20 AM CDT Plan of Treatment Not on file Care Teams Trolley Collector Relationship Specialty Start Date End Date Alla Espinosa MD [address] [place] [address] PCP - General foreign trade teacher 11/28/17
--- OUTSIDE RECORDS SUMMARY | 2023-09-08 10:49 | XMS_ITS | Clinical Summary ---
Author Organization [facility] Address [address] [place] [address] Care Team Providers Care Wet End Tester Name Role Phone Alla Espinosa MD Primary Care Provider [phone] Allergies Active Allergy Reactions Criticality Noted Date [...] HPV. Plan colp 06/01/15 Pt advised. 06/06/15 [place]: WNL. Plan: pap and HPV due in 1 year, by 06/05/16 06/25/16 NIL, +HPV 16 (Care Everywhere) 02/24/17 [place]- Inflammation and mild squamous atypia. Plan 1 yr pap repeat. (Care Everywhere) 07/16/17 ASCUS, Neg HPV. Plan colp. 09/05/17: [place] Bx ADALI I. Plan pap . 07/28/18 [...] CDT Respiratory Rate 16 03/06/2016 5:41 PM AGRICULTURAL COMMODITIES INSPECTOR Oxygen Saturation 99% 08/13/2017 3:25 PM CDT Inhaled Oxygen Concentration - - Weight 94.8 kg (209 lb) 01/02/2018 10:22 AM CDT Height 167.6 cm (5' 6) 09/05/2017 10:20 AM CDT Body Mass Index 33.73 09/05/2017 10:20 AM CDT Plan of Treatment Not on file Care Teams Wet End Tester Relationship Specialty Start Date End Date Alla Espinosa MD [address] [place] [address] PCP - General power transformer repairer 11/28/17
--- OUTSIDE RECORDS SUMMARY | 2023-09-08 10:49 | XMS_ITS | Encounter Summary ---
Author Organization [facility] Address [address] [place] [address]. [place] [address] Care Team Providers Care Can Inspector Name Role Phone Leeanne Fleming APRN, CNP Primary Care Provid er Leeanne Fleming APRN, CNP Primary Care Provid er No Ref-Primary, Physician Primary Care Provider Alla Espinosa MD Primary Care Provider [phone] Leeanne Fleming APRN TRAINING AND DEVELOPMENT PROFESSIONAL Unavailable + [phone] Leeanne Fleming APRN TRAINING AND DEVELOPMENT PROFESSIONAL Unavailable +- [phone] Encounter Details Date Type Department Care Team (Late st Contact Info) Description 11/03/2015 [facility] Medical Advice [address] [place] [address] Leeanne Olson MD [address] [place] [address] [address] [place] [address] Social History Tobacco Use Types [...] on filedocumented in this encounter Care Teams Can Inspector Relationship Specialty Start Date End Date Leeanne Fleming APRN TRAINING AND DEVELOPMENT PROFESSIONAL [address] [place] [address] PCP - General Nurse Practitioner 03/06/16 07/15/17 Leeanne Fleming APRN TRAINING AND DEVELOPMENT PROFESSIONAL [address] [place] [address] PCP - General Nurse Practitioner 07/16/17 07/24/17 No Ref-Primary, Physician PCP - General 07/25/17 11/27/17 Alla Espinosa MD [address] [place] [address] PCP - General branch lending officer 11/28/17 Leeanne Fleming APRN TRAINING AND DEVELOPMENT PROFESSIONAL [address] [place] [address] PCP - Assigned PCP 03/09/15 05/12/18 Leeanne Fleming APRN TRAINING AND DEVELOPMENT PROFESSIONAL [address] [place] [address] Assigned PCP 03/09/15 03/06/19 documented as of this encounter
--- OUTSIDE RECORDS SUMMARY | 2023-09-08 10:49 | XMS_ITS | Encounter Summary ---
Author Organization [facility] Address [address] [place] [address] Care Team Providers Care Rubber Goods Tester Water Name Role Phone Leeanne Fleming APRN, CNP Primary Care Provid er Leeanne Fleming APRN, CNP Primary Care Provid er No Ref-Primary, Physician Primary Care Provider Alla Espinosa MD Primary Care Provider [phone] Leeanne Fleming APRN RETIREMENT ADMINISTRATOR Unavailable [phone] Leeanne Fleming APRN RETIREMENT ADMINISTRATOR Unavailable [phone] Encounter Details Date Type Department Care Team (Late st Contact Info) Description 06/28/2015 [facility] Medical Advice [address] [phone] Leeanne Fleming APRN RETIREMENT ADMINISTRATOR [address] [place] [address] [id number] Social History Tobacco Use Types Packs/Day Years [...] on filedocumented in this encounter Care Teams Rubber Goods Tester Water Relationship Specialty Start Date End Date Leeanne Fleming APRN RETIREMENT ADMINISTRATOR [address] [place] [address] PCP - General Nurse Practitioner 03/06/16 07/15/17 Leeanne Fleming APRN RETIREMENT ADMINISTRATOR [address] [place] [address] PCP - General Nurse Practitioner 07/16/17 07/24/17 No Ref-Primary, Physician PCP - General 07/25/17 11/27/17 Alla Espinosa MD [address] [place] [address] PCP - General pecan sheller 11/28/17 Leeanne Fleming APRN RETIREMENT ADMINISTRATOR [address] [place] [address] PCP - Assigned PCP 03/09/15 05/12/18 Leeanne Fleming APRN RETIREMENT ADMINISTRATOR [address] [place] [address] Assigned PCP 03/09/15 03/06/19 documented as of this encounter
--- OUTSIDE RECORDS SUMMARY | 2023-09-08 10:49 | XMS_ITS | Encounter Summary ---
Author Organization [facility] Address [address], [place] [address] Care Team Providers Care Computed Tomography Technician Name Role Phone Needs Pcp, Assignment Primary Care Provider [phone] Encounter Details Date Type Department Care Team (Latest Contact Info) Description 10/28/2000 [facility] Ector Figueroa MD [address] [place] [address] Social History Tobacco Use Types Packs/Day Years [...] POSTOPERATIVE DIAGNOSIS: Urinary frequency. NAME OF OPERATION: Spencer-distention of the bladder. ANESTHESIA: General. DESCRIPTION OF [...] Figueroa MD Transcribed: 10/29/2000 05:13:00 Doc #: [id number] cc: [facility], Primary Provider DO NOT SIGN UNLESS PRESENT FOR PROCEDURE I attest that I was present for and participated in the joseph portions of this procedure(s) in compliance with the Health Care Financing Administration Teaching Physician Guidelines. Signed Date Regions Staff Physician 1 Page 1 Patient Name: NOREEN KEE Visit Date: 10/28/2000 OUTPATIENT OPERATIVE REPORT [facility] RECORD [address] [phone] Page 1 Patient: [facility]ORE[facility]EE [id number] Date of : 1980 Visit Date: 10/28/2000 OUTPATIENT OPERATIVE REPORT documented in this encounter Plan of Treatment Not on file documented as of this encounter Visit Diagnoses Not on filedocumented in this encounter Care Teams Computed Tomography Technician Relationship Specialty Start Date End Date Needs Pcp, [place] [address] PCP - General 01/04/22 documented as of this encounter
--- OUTSIDE RECORDS SUMMARY | 2023-09-08 10:49 | XMS_ITS | Encounter Summary ---
Author Organization [facility] Address [address] [place] [address]. [place] [address] Care Team Providers Care Doorperson Name Role Phone Leeanne Fleming APRN, CNP Primary Care Provid er Leeanne Fleming APRN, CNP Primary Care Provid er No Ref-Primary, Physician Primary Care Provider Alla Espinosa MD Primary Care Provider [phone] Leeanne Fleming APRN UNIT MANAGER CONVENIENCE STORES Unavailable + [phone] Leeanne Fleming APRN UNIT MANAGER CONVENIENCE STORES Unavailable +- [phone] Encounter Details Date Type Department Care Team (Late st Contact Info) Description 12/22/2015 [facility] [address] [address] Celine Morrison, RN Social History Tobacco Use Types Packs/Day Years [...] * Telephone Encounter - Celine Martin - 12/26/2015 10:37 AM CDT Please see the rational by the patient for wanting her FMLA paperwork filled out for missing work d/t frequent URI symptoms that she believes is related to her low immune system cause by her PCOS. Please write her back personally with your response and if you are willing to fill out paperwork for her. Thanks! Celine Martin documented in this encounter Plan of Treatment Not on file documented as of this encounter Visit Diagnoses Not on filedocumented in this encounter Care Teams Doorperson Relationship Specialty Start Date End Date Leeanne Fleming APRN UNIT MANAGER CONVENIENCE STORES [address] [place] [address] PCP - General Nurse Practitioner 03/06/16 07/15/17 Leeanne Fleming APRN UNIT MANAGER CONVENIENCE STORES [address] [place] [address] PCP - General Nurse Practitioner 07/16/17 07/24/17 No Ref-Primary, Physician PCP - General 07/25/17 11/27/17 Alla Espinosa MD [address] [place] [address] PCP - General furniture mechanic 11/28/17 Leeanne Fleming APRN UNIT MANAGER CONVENIENCE STORES [address] [place] [address] PCP - Assigned PCP 03/09/15 05/12/18 Leeanne Fleming APRN UNIT MANAGER CONVENIENCE STORES [address] [place] [address] Assigned PCP 03/09/15 03/06/19 documented as of this encounter
--- OUTSIDE RECORDS SUMMARY | 2023-09-08 10:49 | XMS_ITS | Encounter Summary ---
Author Organization [facility] Address [address] [place] [address] Care Team Providers Care Forensic Chemist Name Role Phone Leeanne Fleming APRN, CNP Primary Care Provid er Leeanne Fleming APRN, CNP Primary Care Provid er No Ref-Primary, Physician Primary Care Provider Alla Espinosa MD Primary Care Provider Leeanne Fleming APRN CONCRETE VAULT MAKER Unavailable [phone]- [phone] Leeanne Fleming APRN CONCRETE VAULT MAKER Unavailable +- [phone] Reason for Visit * Reason Onset Date Comments Patient Request 02/22/2016 Looking to see i f you can schedule her for an appt Encounter Details Date Type Department Care Team ([facility] Contact Info) Description 02/22/[address] [place] [address] Leeanne Olson MD [address] [place] [address] Patient Request (Looking to see if [...] Left message to call clinic. Celine Martin ETCAR REPAIRER * Telephone Encounter - Leeanne Olson MD - 02/22/2016 12:[address] REPAIRER I could see her on Mar 14 in a 15 min slot but I don't think that is much better than Mar 15. I don'thave any room to squeeze her in before that but she is welcome to see another cobbler sole if they have earlier availability. Thanks, Leeanne Olson MD ETCAR REPAIRER * Telephone Encounter - Rina Wills - 02/22/2016 9:47 AM CST Pt called in stating she had been messaging with you via Marley Spoon about her irregular period and wastold to call to set up an appointment. Your schedule doesn't open up until Mar 15 and she was wondering if you could find a time to squeeze her in any earlier. Pt can be reached @ [phone] [facility] ETCAR REPAIRER documented in this encounter Plan of Treatment Not on file documented as of this encounter Visit Diagnoses Not on filedocumented in this encounter Care Teams Forensic Chemist Relationship Specialty Start Date End Date Leeanne Fleming APRN CONCRETE VAULT MAKER [address] [place] [address] PCP - General Nurse Practitioner 03/06/16 07/15/17 Leeanne Fleming APRN CONCRETE VAULT MAKER [address] [place] [address] PCP - General Nurse Practitioner 07/16/17 07/24/17 No Ref-Primary, Physician PCP - General 07/25/17 11/27/17 Alla Espinosa MD [address] [place] [address] PCP - General clearing hand 11/28/17 Leeanne Fleming APRN CONCRETE VAULT MAKER [address] [place] [address] PCP - Assigned PCP 03/09/15 05/12/18 Leeanne Fleming APRN CONCRETE VAULT MAKER [address] [place] [address] Assigned PCP 03/09/15 03/06/19 documented as of this encounter
--- OUTSIDE RECORDS SUMMARY | 2023-09-08 10:49 | XMS_ITS | Encounter Summary ---
Author Organization [facility] Address [address] [place] [address]. [place] [address] Care Team Providers Care Brick Veneer Maker Name Role Phone No Ref-Primary, Physician Primary Care Provider Alla Espinosa MD Primary Care Provider [phone] Leeanne Fleming GUT CARRIER PENCIL INSPECTOR Unavailable [phone] Leeanne Fleming APRN PENCIL INSPECTOR Unavailable [phone] Reason for Visit * Reason Onset Date Comments Pelvic Pain 08/11/2017 Encounter Details Date Type Department Care Team (Late st Contact Info) Description 08/11/2017 [facility] Medical Advice [address] [address] Alla Espinosa MD [facility] [place] [address] Pelvic Pain Social History Tobacco [...] on filedocumented in this encounter Care Teams Brick Veneer Maker Relationship Specialty Start Date End Date No Ref-Primary, Physician PCP - General 07/25/17 11/27/17 Alla Espinosa MD [address] [place] [address] PCP - General stallion keeper 11/28/17 Leeanne Fleming APRN PENCIL INSPECTOR [address] [place] [address] PCP - Assigned PCP 03/09/15 05/12/18 Leeanne Fleming APRN PENCIL INSPECTOR [address] [place] [address] Assigned PCP 03/09/15 03/06/19 documented as of this encounter
--- OUTSIDE RECORDS SUMMARY | 2023-09-08 10:49 | XMS_ITS | Encounter Summary ---
Author Organization [facility] Address [address] [place] [address] Care Team Providers Care Overcoiler Name Role Phone No Ref-Primary, Physician Primary Care Provider Alla Espinosa MD Primary Care Provider Leeanne Fleming WARP YARN SORTER HEALTH FACILITIES SURVEYOR Unavailable +- [phone] Leeanne Fleming APRN HEALTH FACILITIES SURVEYOR Unavailable +- [phone] Reason for Referral * - Closed Specialty Diagnoses / Procedures Referred By Nima holguin Referred To Contact Diagnoses related condition, antepartum Alla Espinosa MD [address] [place] [address] Referral ID Status Reason Start Date Expiration Date Visits Re quested Visits Authorized [id number] Closed 10/03/2017 10/03/2018 1 1 Comments AMA Encounter Details Date Type Department Care Team (Late st Contact Info) Description 10/03/2017 [facility] [address] [phone] Alla Espinosa MD [address] [facility] [place] [address] related condition, antepartum (Primary Dx) [...] Primary documented in this encounter Care Teams Overcoiler Relationship Specialty Start Date End Date No Ref-Primary, Physician PCP - General 07/25/17 11/27/17 Alla Espinosa MD [address] [place] [address] PCP - General cryptographic machine operator 11/28/17 Leeanne Fleming APRN HEALTH FACILITIES SURVEYOR [address] [place] [address] PCP - Assigned PCP 03/09/15 05/12/18 Leeanne Fleming APRN HEALTH FACILITIES SURVEYOR [address] [place] [address] Assigned PCP 03/09/15 03/06/19 documented as of this encounter
--- OUTSIDE RECORDS SUMMARY | 2023-09-08 10:49 | XMS_ITS | Encounter Summary ---
Author Organization [facility] Address [address] [place] [address] Care Team Providers Care Postal Supervisor Name Role Phone Alla Espinosa MD Primary Care Provider [phone] Leeanne Fleming EDUCATION PROGRAM SPECIALIST FILTRATION PLANT OPERATOR Unavailable [phone] Leeanne Fleming EDUCATION PROGRAM SPECIALIST FILTRATION PLANT OPERATOR Unavailable + [phone] Encounter Details Date Type Department Care Team (Late st Contact Info) Description 12/23/2017 [facility] [address] [address] Alla Espinosa MD [address] [place] [address] Social History Tobacco Use Types Packs/Day Years [...] on filedocumented in this encounter Care Teams Postal Supervisor Relationship Specialty Start Date End Date Alla Espinosa MD [address] [place] [address] PCP - General alley cleaner 11/28/17 Leeanne Fleming APRN FILTRATION PLANT OPERATOR [address] [place] [address] PCP - Assigned PCP 03/09/15 05/12/18 Leeanne Fleming APRN FILTRATION PLANT OPERATOR [address] [place] [address] Assigned PCP 03/09/15 03/06/19 documented as of this encounter
--- OUTSIDE RECORDS SUMMARY | 2023-09-08 10:49 | XMS_ITS | Encounter Summary ---
Author Organization [facility] Address [address] [place] [address] Care Team Providers Care Assembling Machine Operator Name Role Phone Alla Espinosa MD Primary Care Provider [phone] Leeanne Fleming APRN HEALTH PROFESSOR Unavailable [phone] Leeanne Fleming APRN HEALTH PROFESSOR Unavailable [phone]- [phone] Reason for Visit * Reason Onset Date Comments Care 01/17/2018 med question Encounter Details Date Type Department Care Team (Late st Contact Info) Description 01/17/2018 [facility] Advice [address] [address] Alla Espinosa MD [address] [place] [address] Care (med question) Social History [...] on filedocumented in this encounter Care Teams Assembling Machine Operator Relationship Specialty Start Date End Date Alla Espinosa MD [address] [place] [address] PCP - General squaring shear operator 11/28/17 Leeanne Fleming APRN HEALTH PROFESSOR [address] [place] [address] PCP - Assigned PCP 03/09/15 05/12/18 Leeanne Fleming APRN HEALTH PROFESSOR [address] [place] [address] Assigned PCP 03/09/15 03/06/19 documented as of this encounter
--- OUTSIDE RECORDS SUMMARY | 2023-09-08 10:49 | XMS_ITS | Continuity of Care Document ---
Author Organization [facility] Address [address] [address] [place] [address] Phone Care Team Providers Care Commercial Title Examiner Name Role Phone Link Jose PETERSON Unavailable Unavailable Allergies, Adverse Reactions, Alerts Substance Reaction Status Criticality PENICILLIN ItchingItching Active No Informatio n Medications Medication Instructions Dosage Effective Dates (start - stop) Status Comments omeprazole 20 mg capsule,delayed release take 1 capsule by oral route every day 1/2 hour before breakfast 20 MG - No Longer Active Procedures Procedure Date Offic/outpt E&m Estab Low-mod 1 Ugi Endo; W/insrt Guide Wire Ugi Endo; W/bx /mx Level Iv-surg Path Gross/micro 21 Immunocytochemistry, Each Antibody New Level 4 or 45-59 min Advance Directives Directive Yes / No Effective Date File Name No Information Encounters Encounter Description Practice Location Reason(s) For Visit Diagnoses Date Provider Providers Copied on Encounter Offic/outpt E&m Estab Low-mod [facility], [address] [address], [place], [id number], [place] tel:[phone] [facility] GI Symptoms or Concerns (chief complaint) Eosinophilic esophagitisDietary counseling and surveillance 1 Link MD Garcia. [address] [facility] [address], [facility] [address], [place], [id number] , [place]. tel:[phone] Referring Provider: Referral Self, USE FOR SELF REFERRALS. [facility], [address] [address], [place], [id number], [place] tel:[phone] [facility] Esophageal strictureEosinophil ic esophagitisDisease of stomach and duodenum, unspecifiedEsophage al obstruction 1 Link MD Garcia. [address] [facility] [address], [facility] [address], [place], [id number] , [place]. [phone] Referring Provider: Referral Self, USE FOR SELF REFERRALS. New Level 4 or 45-59 min [facility], [address] [address], [place], [id number], [place] tel:[phone] [facility] Comment (chief complaint) Esophageal dysphagiaUpper abdominal pain 0 Link MD Garcia. [address] [facility] [address], [facility] [address], [place], [id number] , [place]. [phone] Referring Provider: Referral Self, USE FOR SELF REFERRALS. Family History Family Member Type Diagnosis Age At Onset No Information Payers Payer name Insurance type Covered republican ID Martin ram(s) [email or web address] [id number] Social History Type Description Quantity Date Captured Comments Alcohol Use Details Caffeine Use Details Unknown Tobacco Use Status Current non-smoker Smoking Status Never smoker Sex Female Vital Signs Date / Time: Height Weight BMI Pulse Rate Blood Pressure Temperature Respiratory Rate Body Surface Area Head Circumference Head Circ. Percentile Wt./Vishnu. Percentile BMI percentile Pulse Ox Inhaled Ox 3:39 PM 65.00 in 101.423 kg (223.60 lbs) 37.2 1 kg/m eter (2) 72 /min 126/79 mm[Hg] Chief Complaint And Reason For Visit From encounter dated '04/17/2020 16:00'. GI Symptoms or Concerns (chief complaint). Description: I had a followup visit with Noreen today. Herlast visit was in February, and at that time she was having dysphagia 3 to 4 times per week. On March 20, she underwent an upper GI endoscopy, which showed an esophageal stricture. Esophageal biopsies were performed, which showed eosinophilic esophagitis. Gastric biopsies showed mild nonspecific chronic inflammation without Helicobacter. Duodenal biopsies showed intraepithelial lymphocytosis with normal villous architecture. I did send in a prescription for omeprazole at that time.Noreen notes that she has had a significant improvement in her swallowing since the endoscopy. She states she hashad only 2 or 3 episodes of swallowing difficulty, and they were less severe. When these occurred, the food passed on its own and she did not have to regurgitate it. Overall, she is pleased with the results.She did not begin the omeprazole, as she would prefer not to take long-term medication for this condition. Reason For Referral Reason For Referral No Information Plan Of Treatment Date Type Action Status Goal Lifestyle education luigiin g diet completed Referral Ordered: referred to [facility], and [facility] ordered Referral Ordered: EGD With Dilation Appointment date/timeframe: 03/20/2020 ordered History Of Present Illness Encounter Date Complaint History Of Prese nt Illness GI Symptoms or Concerns I had a followup visit with Noreen today. Her last visit was in February, and at that time she was having dysphagia 3 to 4 times per week. On March 20, she underwent an upper GI endoscopy, which showed an esophageal stricture. Esophageal biopsies were performed, which showed eosinophilic esophagitis. Gastric biopsies showed mild nonspecific chronic inflammation without Helicobacter. Duodenal biopsies showed intraepithelial lymphocytosis with normal villous architecture. I did send in a prescription for omeprazole at that time.Noreen notes that she has had a significant improvement in her swallowing since the endoscopy. She states she has had only 2 or 3 episodes of swallowing difficulty, and they were less severe. When these occurred, the food passed on its own and she did not have to regurgitate it. Overall, she is pleased with the results.She did not begin the omeprazole, as she would prefer not to take long-term medication for this condition. Comment I had a virtual visit with Noreen today. She has been having difficulty with dysphagia and upper abdominal pain.She states she began to have trouble swallowing approximately 1 year ago. Initially, this was quite infrequent, however more recently, it is occurring 3 to 4 times per week. She has difficulty with solid foods such as meat and bread. She has no trouble swallowing liquids. She notes that when she has trouble, it will feel as though the food is stuck in her esophagus. At these times, she is not able to eat or drink anything until she regurgitates the food. She denies any nausea or vomiting. She does have heartburn about once a week.She also notes upper abdominal pain. She states that this has been constant for the past 2-1/2 weeks. This pain does not change with eating a meal. It can be improved with a bowel movement. She notes she has a bowel movement once or twice a day. She does state that her stools are small, and she almost always has a sensation of incompl Functional Status Date Functional Assessmen t No Information Instructions Date Instruction Additional Infor hectortheron Lifestyle education regarding di et Related to Dietary counseling and surveillance 1. Upper GI endoscop y. I explained that we can evaluate for stricture or ring, and dilate if we see this. If normal or evidence of eosinophilic esophagitis, we would do esophageal biopsies.2. At the time of endoscopy, we can assess for gastritis and ulcer disease, and biopsy for H. pylori and celiac disease.3. In the meantime, I did recommend she try a daily fiber supplement to see if this helps her colon emptying and improve her symptoms.Thank you for allowing me to participate in the care of this patient. Please feel free to contact me should any questions arise. Related to Esophageal dysphagia Assessments Type Assessment Date assessment Eosinophilic esophagitis 2020 assessment Dietary counseling and surveilla nce impression This is a pleasant [age]-year-old with eosinophilic esophagitis. We did discuss treatment options including omeprazole, topical swallowed steroids, as well as elimination diet. We discussed the 6-food elimination diet, versus food allergy testing with elimination of foods that she is found to be allergic to. She would prefer to try food allergy testing with the hope of avoiding long-term medication use. I explained that this is reasonable, I did refer her to Allergy and Immunology. I will plan to have her follow up with me in clinic in 4 months. This should hopefully give her time to see the boxing machine operator, have testing, and try food elimination to see if this helps her symptoms.Thank you for allowing me to participate in the care of this patient. Please feel free to contact me should any questions arise. Patient Care Teams Name Effective Dates (start - stop) Status Members No Information
--- OUTSIDE RECORDS SUMMARY | 2023-09-08 10:49 | XMS_ITS | Encounter Summary ---
Author Organization [facility] Address [address] [place] [address]. [place] [address] Care Team Providers Care Bottle House Cleaners Supervisor Name Role Phone Leeanne Fleming APRN, CNP Primary Care Provid er Leeanne Fleming APRN, CNP Primary Care Provid er No Ref-Primary, Physician Primary Care Provider Alla Espinosa MD Primary Care Provider [phone] Leeanne Fleming APRN CORRECTIONAL OFFICER CHIEF Unavailable [phone] Leeanne Fleming APRN CORRECTIONAL OFFICER CHIEF Unavailable [phone] Encounter Details Date Type Department Care Team (Late st Contact Info) Description 06/13/2015 [facility] [place] [facility] [place] [address] [place] [address] Leeanne Olson MD [address] [place] [address] [address] [place] [address] Social History Tobacco Use Types [...] on filedocumented in this encounter Care Teams Bottle House Cleaners Supervisor Relationship Specialty Start Date End Date Leeanne Fleming APRN CORRECTIONAL OFFICER CHIEF [address] [place] [address] PCP - General Nurse Practitioner 03/06/16 07/15/17 Leeanne Fleming APRN CORRECTIONAL OFFICER CHIEF [address] [place] [address] PCP - General Nurse Practitioner 07/16/17 07/24/17 No Ref-Primary, Physician PCP - General 07/25/17 11/27/17 Alla Espinosa MD [address] [place] [address] PCP - General basket filler 11/28/17 Leeanne Fleming APRN CORRECTIONAL OFFICER CHIEF [address] [place] [address] PCP - Assigned PCP 03/09/15 05/12/18 Leeanne Fleming APRN CORRECTIONAL OFFICER CHIEF [address] [place] [address] Assigned PCP 03/09/15 03/06/19 documented as of this encounter
== END 2023-09-08 10:04 | disposition home or self-care (01) ==
PROVIDERS: PCP Physician Assistant Medical; Visit Provider Physician Assistant Medical
DX: R07.81 Pleurodynia (principal); K40.90 Unilateral inguinal hernia, without obstruction or gangrene, not specified as recurrent; N83.202 Unspecified ovarian cyst, left side
CPT/HCPCS: 74176

== ENCOUNTER 2024-08-03 09:45 | Outpatient (RCR) | payer OTHER, SELFPAY | END 2024-11-10 15:15 | disposition home or self-care (01) | PROVIDERS: PCP Physician Assistant Medical; Visit Provider Obstetrics & Gynecology | DX: N30.10 Interstitial cystitis (chronic) without hematuria (principal); N39.41 Urge incontinence; R10.30 Lower abdominal pain, unspecified; M54.50 Low back pain, unspecified; N94.2 Vaginismus; Z51.89 Encounter for other specified aftercare | CPT/HCPCS: 97110; 97112; 97140; 97162; 97535 ==